=== PATIENT | male | born 1965 | race Caucasian/White ===

== ENCOUNTER 2023-07-17 01:46 | Day surgery (SDC) | payer OTHER, SELFPAY ==
[2023-07-09 12:08] VITALS: BMI 27.8
[2023-07-17 06:58] VITALS: BP 118/73; PULSE 62; RESP 16; TEMP 36.3; O2SAT 100; BMI 26.7
[2023-07-17] MEDS: LACTATED RINGERS 1,000 ML 150 ML IV CONT (07:17)
--- NOTE | 2023-07-17 07:29 | PM.HPGS ---
History of Present Illness History of Present Illness Consent: Risks, benefits, and alternatives have been discussed and questions answered. Patient agrees to proceed with procedure. Chief complaint: neoplasm screening Narrative: Luis Manuel Silverio is a 58 year old male Presents for screening colonoscopy. Patient's current weight appetite and bowel movements are normal. Patient denies abdominal pain. He has had no bleeding. Family history noncontributory. He has not had any previous exams. Review of Systems Review of Systems: Review of systems noncontributory. [facility] Social History Social History Smoking packs per day: 1 Smoking cigarettes per day: 20.0 Years smoked: 6 Smoking pack-years: 6.00 Smoking status: Former smoker Living arrangements: other Additional living arrangements comments: with sp Meds Home Medications and Allergies Home Medications Medication Instructions Recorded Confirmed Type aspirin 81 mg tablet 81 mg PO DAILY 07/09/23 07/17/23 History metoprolol succinate 25 mg 25 mg PO DAILY 07/09/23 07/17/23 History tablet,extended release 24 hr rosuvastatin 40 mg tablet 40 mg PO DAILY 07/09/23 07/17/23 History Allergies Allergy/AdvReac Type Severity Reaction Status Date / Time No Known Allergies Allergy Verified 07/17/23 07:05 Vital Signs Vital Signs - 24 hr 07/17/23 06:58 Temperature 97.3 F L Pulse Rate 62 Respiratory Rate 16 Blood Pressure 118/73 Pulse Oximetry 100 Oxygen Delivery Room Air Exam Narrative: Physical exam reveals patient to be alert. Vital signs stable. HEENT exam is unremarkable. Patient is anicteric. Lungs are clear to auscultation and percussion. Heart is without murmur or extra sounds. Abdomen bowel sounds are present soft nontender with no organomegaly. Digital external rectal exam is normal. Assessment and Plan Assessment and plan (1) Encounter for screening colonoscopy: Code(s): Z12.11 - Encounter for screening for malignant neoplasm of colon Status: Acute Assessment and Plan: Patient presents for screening colonoscopy. He appears to be at average risk for colon polyps. Further recommendations may be given after endoscopy.
--- NOTE | 2023-07-17 08:15 | P.PNAN_ITS ---
Anes - Initial Pre Proc Eval Procedure: Operation Date: 07/17/23 08:30 Proposed Procedures p Screening Colonoscopy - Abimael Bolton MD Date/Time: 07/17/23 08:15 Surgeon: Abimael Bolton MD Pre Op Diagnosis: neoplasm screening Patient Data Age: 58 Gender: M Height: 1.85 m Weight: 91.9 kg Last Vital Signs Temp 97.3 F L 07/17/23 06:58 Pulse 62 07/17/23 06:58 Resp 16 07/17/23 06:58 BP 118/73 07/17/23 06:58 Pulse Ox 100 07/17/23 06:58 O2 Del Method Room Air 07/17/23 06:58 Allergies Allergy/AdvReac Type Severity Reaction Status Date / Time No Known Allergies Allergy Verified 07/17/23 07:05 Home Medications Medication Instructions Recorded Confirmed Type aspirin 81 mg tablet 81 mg PO DAILY 07/09/23 07/17/23 History metoprolol succinate 25 mg 25 mg PO DAILY 07/09/23 07/17/23 History tablet,extended release 24 hr rosuvastatin 40 mg tablet 40 mg PO DAILY 07/09/23 07/17/23 History Patient hx anesthesia problems: none Family hx anesthesia problems: none Results Review: All pre-operative results and documents have been reviewed as part of the pre- operative evaluation. PMFSH Social History Social History Smoking packs per day: 1 Smoking cigarettes per day: 20.0 Years smoked: 6 Smoking pack-years: 6.00 Smoking status: Former smoker Living arrangements: other Additional living arrangements comments: with sp Anes - Eval Final PreProcedure Day of Procedure 07/17/23 08:15 Patient weight: normal Heart: regular rate and rhythm Lungs: clear to auscultation Airway: Mallampati scale class II Neurological: alert and oriented Last oral intake: >/= 8 hours ASA classification: III Emergent: no Anesthetic plan: proceed Anesthesia type and monitoring: general GIVS and standard monitoring Results Review: All pre-operative results and documents have been reviewed as part of the pre- operative evaluation. Informed Consent: The patient's anesthetic plan and its attendant risks and benefits were discussed with the patient/family/POA. Questions were solicited and answers provided to the satisfaction of the patient/family/POA.
[2023-07-17 09:05] VITALS: BP 111/76; PULSE 61; RESP 16; O2SAT 99
[2023-07-17 09:15] VITALS: BP 115/73; PULSE 57; RESP 19; O2SAT 99
[2023-07-17 09:25] VITALS: BP 120/72; PULSE 50; RESP 16; O2SAT 100
== END 2023-07-17 09:39 | disposition home or self-care (01) ==
PROVIDERS: Visit Provider Internal Medicine Gastroenterology
PROC: 0DJD8ZZ Inspection of Lower Intestinal Tract, Via Natural or Artificial Opening Endoscopic (ICD-10-PCS; CPT 45378; principal; 2023-07-17 08:30)
DX: Z12.11 Encounter for screening for malignant neoplasm of colon (principal); D12.5 Benign neoplasm of sigmoid colon; K63.5 Polyp of colon; K64.8 Other hemorrhoids; Z87.891 Personal history of nicotine dependence; Z79.82 Long term (current) use of aspirin
CPT/HCPCS: 45385; 88305; J2704; J7120